=== PATIENT | female | born 1955 | race Caucasian/White ===

== ENCOUNTER → 2016-05-13 | Outpatient (CLI) | payer BC ==
--- NOTE | 2016-05-13 16:30 | P.HPBAR ---
Bariatric H&P - History & Physicial H&P Date: 05/13/16 History & Physicial: Visit/CC: Patient initial contact: Initial weight: Initial weight in pounds: Height: Initial BMI: Last weight: Current weight: Current weight in pounds: Current BMI: [place] body weight (based on NIH guidelines): Excess body weight loss: The patient is a 60 year-old F who presents for Bariatric Assessment. The patient presents today for lab band follow up. She has complaints of obstruction. She was still fill. Past Medical History Past Medical History: Hypertension, Neurologic Disorder Additional Past Medical History / Comment(s): neurological disorder of bilateral legs History of Any Multi-Drug Resistant Organisms: None Reported Past Surgical History: Appendectomy Additional Past Surgical History / Comment(s): benighn mass removed left upper thigh - Past Anesthesia/Blood Transfusion Reactions: No Reported Reaction Past Psychological History: Depression Smoking Status: Unknown if ever smoked Past Drug Use History: None Reported Surgical - Exam - General well developed, no distress - Eyes PERRL - ENT normal pinna - Neck no masses - Respiratory normal expansion - Cardiovascular Rhythm: regular - Abdomen Abdomen: soft, non tender Bariatric Assessment & Plan Plan: The patient LAP-BAND was adjusted. She had 1.5 mL added to her band. She'll follow-up in 4 weeks for recheck. Bariatric Checklist Checklist: Plan: Checklist: EGD: 1. Hiatal hernia: 2. H. Pylori: HgbA1c: Vitamin D: Smoking: Unknown if ever smoked Primary care physician referral: Psychiatry clearance: Cardiology clearance: Sleep study: Diet journal: VTE risk score: VTE risk level: Rehab needs at discharge:
[2016-05-13 17:02] VITALS: BP 101/59; PULSE 78; TEMP 97.8; BMI 26.9
== END | disposition home or self-care (01) ==
LOC: BARWHC3 12:51
PROVIDERS: ATTEND Surgery
DX: Z48.815 Encounter for surgical aftercare following surgery on the digestive system (principal); Z98.84 Bariatric surgery status
CPT/HCPCS: 99202

== ENCOUNTER → 2016-06-17 | Outpatient (CLI) | payer BC ==
[2016-06-17 13:20] VITALS: BP 107/62; PULSE 71; RESP 14; TEMP 98.4; BMI 26.9
--- NOTE | 2016-06-17 13:41 | P.HPBAR ---
Bariatric H&P - History & Physicial H&P Date: 06/17/16 History & Physicial: Visit/CC: band fill Patient initial contact: Initial weight: 95.254 kg Initial weight in pounds: 210.00 Height: 5 ft 7 in Initial BMI: 32.8 Last weight: Current weight: 77.882 kg Current weight in pounds: 171.70 Current BMI: 26.9 [place] body weight (based on NIH guidelines): 61.235 kg Excess body weight loss: 51.0% The patient is a 60 year-old F who presents for Bariatric Assessment. The patient had a computed tomography scan performed at her home [facility]. Patient' s found have a dilated esophagus on CAT scan. She states she feels no restriction. Past Medical History Past Medical History: Hypertension, Neurologic Disorder Additional Past Medical History / Comment(s): neurological disorder of bilateral legs History of Any Multi-Drug Resistant Organisms: None Reported Past Surgical History: Appendectomy Additional Past Surgical History / Comment(s): benighn mass removed left upper thigh - Past Anesthesia/Blood Transfusion Reactions: No Reported Reaction Past Psychological History: Depression Smoking Status: Never smoker Past Drug Use History: None Reported Surgical - Exam Vital Signs Temp Pulse Resp BP 98.4 F 71 14 107/62 06/17/16 13:16 06/17/16 13:16 06/17/16 13:16 06/17/16 13:16 - General well developed, no distress - Eyes PERRL - ENT normal pinna - Neck no masses - Respiratory normal expansion - Cardiovascular Rhythm: regular Abnormal Heart Sounds: systolic murmur - Abdomen Abdomen: soft, non tender Bariatric Assessment & Plan Plan: The patient's lap band was emptied area 1.4 mL remove her band. Patient will follow-up in one month and have a repeat esophagram performed. Bariatric Checklist Checklist: Plan: Checklist: EGD: 1. Hiatal hernia: 2. H. Pylori: HgbA1c: Vitamin D: Smoking: Never smoker Primary care physician referral: [place] Psychiatry clearance: Cardiology clearance: Sleep study: Diet journal: VTE risk score: VTE risk level: Rehab needs at discharge:
== END | disposition home or self-care (01) ==
LOC: BARWHC3 12:57
PROVIDERS: ATTEND Surgery
DX: Z48.815 Encounter for surgical aftercare following surgery on the digestive system (principal); R13.10 Dysphagia, unspecified; K22.8 Other specified diseases of esophagus; Z98.84 Bariatric surgery status; Z68.26 Body mass index [BMI] 26.0-26.9, adult
CPT/HCPCS: 99212

== ENCOUNTER → 2016-07-15 | Outpatient (CLI) | payer BC ==
--- NOTE | 2016-07-15 11:53 | FL ---
Limited esophagram history: Dysphasia 8 seconds fluoroscopy time Patient was given high density barium to drink Exam correlated to previous of 30 October 2009 FINDINGS: Attention directed to the lap band level. The lap band shows a normal orientation and is st able. There is no obstruction to flow. No extravasation. IMPRESSION: No evident complication status post lap band.
[2016-07-15 13:20] VITALS: BP 111/68; PULSE 66; RESP 14; TEMP 98; BMI 27.4
--- NOTE | 2016-07-15 16:58 | P.HPBAR ---
Bariatric H&P - History & Physicial H&P Date: 07/15/16 History & Physicial: Visit/CC: band fill Patient initial contact: Initial weight: 95.254 kg Initial weight in pounds: 210.00 Height: 5 ft 7 in Initial BMI: 32.8 Last weight: Current weight: 79.469 kg Current weight in pounds: 175.20 Current BMI: 27.4 [place] body weight (based on NIH guidelines): 61.235 kg Excess body weight loss: 46.3% The patient is a 60 year-old F who presents for Bariatric Assessment. Patient presents today for lab band follow. She currently feels hungry. He is requesting a fill of her LAP-BAND. Past Medical History Past Medical History: Hypertension, Neurologic Disorder Additional Past Medical History / Comment(s): neurological disorder of bilateral legs, Left broken clavicle x2, History of Any Multi-Drug Resistant Organisms: None Reported Past Surgical History: Appendectomy, Orthopedic Surgery Additional Past Surgical History / Comment(s): benighn mass removed left upper thigh 03-20, left clavicle repaired surgically on 06/25/16 Past Anesthesia/Blood Transfusion Reactions: No Reported Reaction Past Psychological History: Depression Smoking Status: Never smoker Past Drug Use History: None Reported Surgical - Exam Vital Signs Temp Pulse Resp BP 98.0 F 66 14 111/68 07/15/16 13:13 07/15/16 13:13 07/15/16 13:13 07/15/16 13:13 - General well developed, no distress - Eyes PERRL - ENT normal pinna - Neck no masses - Abdomen Abdomen: soft, non tender Bariatric Assessment & Plan Plan: The patient had 1 mL added to her LAP-BAND. She is ill drink water without difficulty. She'll follow-up in 4 weeks. Bariatric Checklist Checklist: Plan: Checklist: EGD: 1. Hiatal hernia: 2. H. Pylori: HgbA1c: Vitamin D: Smoking: Never smoker [facility] Psychiatry clearance: Cardiology clearance: Sleep study: Diet journal: VTE risk score: VTE risk level: Rehab needs at discharge:
== END | disposition home or self-care (01) ==
LOC: RADFLWHC 10:57
PROVIDERS: ATTEND Surgery
DX: Z48.815 Encounter for surgical aftercare following surgery on the digestive system (principal); R13.10 Dysphagia, unspecified; Z98.84 Bariatric surgery status; Z68.27 Body mass index [BMI] 27.0-27.9, adult
CPT/HCPCS: 74220; 99212

== ENCOUNTER → 2016-07-29 | Outpatient (CLI) | payer BC ==
[2016-07-29 15:17] VITALS: BP 138/83; PULSE 63; TEMP 98.3; BMI 27.5
--- NOTE | 2016-07-29 15:56 | P.HPBAR ---
Bariatric H&P - History & Physicial H&P Date: 07/29/16 History & Physicial: Visit/CC: Patient initial contact: Initial weight: 95.254 kg Initial weight in pounds: 210.00 Height: 5 ft 7 in Initial BMI: 32.8 Last weight: Current weight: 79.651 kg Current weight in pounds: 175.60 Current BMI: 27.5 [place] body weight (based on NIH guidelines): 61.235 kg Excess body weight loss: 45.8% The patient is a 60 year-old F who presents for Bariatric Assessment. The patient presents today for lab band follow. She currently feels hungry and is wishing to have a fill. Past Medical History Past Medical History: Hypertension, Neurologic Disorder Additional Past Medical History / Comment(s): neurological disorder of bilateral legs, Left broken clavicle x2, History of Any Multi-Drug Resistant Organisms: None Reported Past Surgical History: Appendectomy, Orthopedic Surgery Additional Past Surgical History / Comment(s): benighn mass removed left upper thigh 03-20, left clavicle repaired surgically on 06/25/16 Past Anesthesia/Blood Transfusion Reactions: No Reported Reaction Past Psychological History: Depression Smoking Status: Never smoker Past Drug Use History: None Reported Surgical - Exam Vital Signs Temp Pulse BP 98.3 F 63 138/83 07/29/16 15:15 07/29/16 15:15 07/29/16 15:15 - General well developed, no distress - Eyes PERRL - ENT normal pinna - Neck no masses - Respiratory normal expansion - Cardiovascular Rhythm: regular - Abdomen Abdomen: soft, non tender Bariatric Assessment & Plan Plan: The patient's lap band was adjusted. She had 0.5 mL added to her LAP-BAND. She currently is 1.5 mL in the band. She will follow-up in one month for recheck. Bariatric Checklist Checklist: Plan: Checklist: EGD: 1. Hiatal hernia: 2. H. Pylori: HgbA1c: Vitamin D: Smoking: Never smoker Primary care physician referral: alecia cabrera) Psychiatry clearance: Cardiology clearance: Sleep study: Diet journal: VTE risk score: VTE risk level: Rehab needs at discharge:
== END | disposition home or self-care (01) ==
LOC: BARWHC3 13:06
PROVIDERS: ATTEND Surgery
DX: Z48.815 Encounter for surgical aftercare following surgery on the digestive system (principal); Z98.84 Bariatric surgery status; Z68.27 Body mass index [BMI] 27.0-27.9, adult
CPT/HCPCS: 99212

== ENCOUNTER → 2016-08-26 | Outpatient (CLI) | payer BC ==
[2016-08-26 16:05] VITALS: BP 107/64; PULSE 72; RESP 15; TEMP 98.1; BMI 26.9
--- NOTE | 2016-08-26 16:51 | P.HPBAR ---
Bariatric H&P - History & Physicial H&P Date: 08/26/16 History & Physicial: Visit/CC: band fill Patient initial contact: Initial weight: 95.254 kg Initial weight in pounds: 210.00 Height: 5 ft 8 in Initial BMI: 31.9 Last weight: Current weight: 80.24 kg Current weight in pounds: 176.90 Current BMI: 26.9 [place] body weight (based on NIH guidelines): 63.503 kg Excess body weight loss: 47.2% The patient is a 60 year-old F who presents for Bariatric Assessment. Patient presents today for her LAP-BAND adjustment. She complains of hunger and wants to have more fluid placed in her band. She denies any GERD and dysphagia. Past Medical History Past Medical History: Hypertension, Neurologic Disorder Additional Past Medical History / Comment(s): neurological disorder of bilateral legs, Left broken clavicle x2, History of Any Multi-Drug Resistant Organisms: None Reported Past Surgical History: Appendectomy, Orthopedic Surgery Additional Past Surgical History / Comment(s): benighn mass removed left upper thigh 03-20, left clavicle repaired surgically on 06/25/16 Past Anesthesia/Blood Transfusion Reactions: No Reported Reaction Past Psychological History: Depression Smoking Status: Never smoker Past Drug Use History: None Reported Surgical - Exam Vital Signs Temp Pulse Resp BP 98.1 F 72 15 107/64 08/26/16 15:57 08/26/16 15:57 08/26/16 15:57 08/26/16 15:57 - General well developed, no distress - Eyes PERRL - ENT normal pinna - Neck no masses - Respiratory normal expansion - Cardiovascular Rhythm: regular - Abdomen Abdomen: soft, non tender Bariatric Assessment & Plan Plan: The patient's lap band was adjusted. She had 0.7 mL added to her LAP-BAND. She currently is 1.4 mL in the band. She will follow-up in one month for recheck. Bariatric Checklist Checklist: Plan: Checklist: EGD: 1. Hiatal hernia: 2. H. Pylori: HgbA1c: Vitamin D: Smoking: Never smoker Primary care physician referral: alecia [place]) Psychiatry clearance: Cardiology clearance: Sleep study: Diet journal: VTE risk score: VTE risk level: Rehab needs at discharge:
== END ==
LOC: BARWHC3 14:45
PROVIDERS: ATTEND Surgery
DX: Z48.815 Encounter for surgical aftercare following surgery on the digestive system (principal); Z98.84 Bariatric surgery status
CPT/HCPCS: 99202; 99212

== ENCOUNTER → 2016-09-23 | Outpatient (CLI) | payer BC ==
[2016-09-23 15:30] VITALS: BP 100/64; PULSE 65; RESP 15; TEMP 98.2; BMI 27.3
--- NOTE | 2016-09-23 16:29 | P.HPBAR ---
Bariatric H&P - History & Physicial H&P Date: 09/23/16 History & Physicial: Visit/CC: band fill Patient initial contact: Initial weight: 95.254 kg Initial weight in pounds: 210.00 Height: 5 ft 8 in Initial BMI: 31.9 Last weight: Current weight: 81.647 kg Current weight in pounds: 180.00 Current BMI: 27.3 [place] body weight (based on NIH guidelines): 63.503 kg Excess body weight loss: 42.8% The patient is a 61 year-old F who presents for Bariatric Assessment. [place]clerae and is requesting a fill of her LAP-BAND. Past Medical History Past Medical History: Hypertension, Neurologic Disorder Additional Past Medical History / Comment(s): neurological disorder of bilateral legs, Left broken clavicle x2, History of Any Multi-Drug Resistant Organisms: None Reported Past Surgical History: Appendectomy, Orthopedic Surgery Additional Past Surgical History / Comment(s): benighn mass removed left upper thigh -, left clavicle repaired surgically on 06/25/16 Past Anesthesia/Blood Transfusion Reactions: No Reported Reaction Past Psychological History: Depression Smoking Status: Never smoker Past Drug Use History: None Reported Surgical - Exam Vital Signs Temp Pulse Resp BP 98.2 F 65 15 100/64 09/23/16 15:26 09/23/16 15:26 09/23/16 15:26 09/23/16 15:26 - General well developed, no distress - Eyes PERRL - ENT normal pinna - Neck no masses - Respiratory normal expansion - Cardiovascular Rhythm: regular - Abdomen Abdomen: soft, non tender Bariatric Assessment & Plan Plan: his LAP-BAND was adjusted. She had 1 mL added to her band. She will follow-up in one month. Bariatric Checklist Checklist: Plan: Checklist: EGD: 1. Hiatal hernia: 2. H. Pylori: HgbA1c: Vitamin D: Smoking: Never smoker Primary care physician referral: alecia [place]) Psychiatry clearance: Cardiology clearance: Sleep study: Diet journal: VTE risk score: VTE risk level: Rehab needs at discharge:
== END | disposition home or self-care (01) ==
LOC: BARWHC3 14:51
PROVIDERS: ATTEND Surgery
DX: Z09 Encounter for follow-up examination after completed treatment for conditions other than malignant neoplasm (principal); I10 Essential (primary) hypertension; F32.9 Major depressive disorder, single episode, unspecified; Z98.84 Bariatric surgery status
CPT/HCPCS: 99212

== ENCOUNTER → 2016-10-14 | Outpatient (CLI) | payer BC ==
[2016-10-14 14:23] VITALS: BP 113/73; PULSE 72; RESP 14; TEMP 98.2; BMI 26.4
--- NOTE | 2016-10-14 15:22 | P.HPBAR ---
Bariatric H&P - History & Physicial H&P Date: 10/14/16 History & Physicial: Visit/CC: band fill Patient initial contact: Initial weight: 95.254 kg Initial weight in pounds: 210.00 Height: 5 ft 8 in Initial BMI: 31.9 Last weight: Current weight: 78.88 kg Current weight in pounds: 173.90 Current BMI: 26.4 [place] body weight (based on NIH guidelines): 63.503 kg Excess body weight loss: 51.5% The patient is a 61 year-old F who presents for Bariatric Assessment. She is requesting a fill of her LAP-BAND. She currently feels hunger. Past Medical History Past Medical History: Hypertension, Neurologic Disorder Additional Past Medical History / Comment(s): neurological disorder of bilateral legs, Left broken clavicle x2, Right broken patella 09/13/16; History of Any Multi-Drug Resistant Organisms: None Reported Past Surgical History: Appendectomy, Orthopedic Surgery Additional Past Surgical History / Comment(s): benighn mass removed left upper thigh 03-20, left clavicle repaired surgically on 06/25/16 Past Anesthesia/Blood Transfusion Reactions: No Reported Reaction Past Psychological History: Depression Smoking Status: Never smoker Past Drug Use History: None Reported Surgical - Exam Vital Signs Temp Pulse Resp BP 98.2 F 72 14 113/73 10/14/16 14:21 10/14/16 14:21 10/14/16 14:21 10/14/16 14:21 - General well developed - Eyes PERRL - Respiratory normal expansion - Cardiovascular Rhythm: regular - Abdomen Abdomen: soft, non tender Bariatric Assessment & Plan Plan: The patient LAP-BAND was adjusted. She has 1.2 mL in the band. She is postoperative 2.4 mL in the band. I explained to patient that she must have a leak in the system. The band was adjusted she had a total of 2.5 mL placed in her LAP-BAND. She'll follow-up in one month for recheck if her band has decreased volume patient most likely has a leak at her port. This will need to be changed. She'll follow-up one month. Bariatric Checklist Checklist: Plan: Checklist: EGD: 1. Hiatal hernia: 2. H. Pylori: HgbA1c: Vitamin D: Smoking: Never smoker Primary care physician referral: [place]) Psychiatry clearance: Cardiology clearance: Sleep study: Diet journal: VTE risk score: VTE risk level: Rehab needs at discharge:
== END ==
LOC: BARWHC3 13:37
PROVIDERS: ATTEND Surgery
DX: Z48.815 Encounter for surgical aftercare following surgery on the digestive system (principal); Z98.84 Bariatric surgery status
CPT/HCPCS: 99212

== ENCOUNTER → 2016-10-28 | Outpatient (CLI) | payer BC ==
[2016-10-28 19:41] VITALS: BP 119/67; PULSE 77; RESP 16; TEMP 98; BMI 26.0
--- NOTE | 2016-11-11 17:05 | P.HPBAR ---
Bariatric H&P - History & Physicial H&P Date: 10/28/16 History & Physicial: Visit/CC: band fill (suspect a leak) Patient initial contact: Initial weight: 95.254 kg Initial weight in pounds: 210.00 Height: 5 ft 8 in Initial BMI: 31.9 Last weight: Current weight: 77.746 kg Current weight in pounds: 171.40 Current BMI: 26.0 [place] body weight (based on NIH guidelines): 63.503 kg Excess body weight loss: 55.1% The patient is a 61 year-old F who presents for Bariatric Assessment. Patient is requesting a fill of her LAP-BAND. He feels hungry. Past Medical History Past Medical History: Hypertension, Neurologic Disorder Additional Past Medical History / Comment(s): neurological disorder of bilateral legs, Left broken clavicle x2, Right broken patella 09/13/16; History of Any Multi-Drug Resistant Organisms: None Reported Past Surgical History: Appendectomy, Orthopedic Surgery Additional Past Surgical History / Comment(s): benighn mass removed left upper thigh 03-20, left clavicle repaired surgically on 06/25/16 Past Anesthesia/Blood Transfusion Reactions: No Reported Reaction Past Psychological History: Depression Smoking Status: Never smoker Surgical - Exam Vital Signs Temp Pulse Resp BP 98 F 77 16 119/67 10/28/16 19:36 10/28/16 19:36 10/28/16 19:36 10/28/16 19:36 - General well developed, no distress - Abdomen Abdomen: soft, non tender Bariatric Assessment & Plan Plan: The patient LAP-BAND was adjusted. She had 1 mL added to the band. The fluid immediately started to leak from the port. There appeared to be a reservoir leak. I discussed with patient that she has a malfunctioning LAP-BAND port. She will need to be scheduled for replacement of her LAP-BAND port. Bariatric Checklist Checklist: Plan: Checklist: EGD: 1. Hiatal hernia: 2. H. Pylori: HgbA1c: Vitamin D: Smoking: Never smoker Primary care physician referral: alecia cabrera) Psychiatry clearance: Cardiology clearance: Sleep study: Diet journal: VTE risk score: VTE risk level: Rehab needs at discharge:
== END | disposition home or self-care (01) ==
LOC: BARWHC3 13:29
PROVIDERS: ATTEND Surgery
DX: Z48.815 Encounter for surgical aftercare following surgery on the digestive system (principal); I10 Essential (primary) hypertension; F32.9 Major depressive disorder, single episode, unspecified
CPT/HCPCS: 99212

== ENCOUNTER 2016-12-13 08:39 | Day surgery (SDC) | payer BC ==
[2016-12-10 13:24] VITALS: BMI 26.6
[~2016-12-13 08:39] MED LIST: DEXAMETHASONE SOD PHOSPHATE 10 MG/ML 1 ML VIAL IV ONE; HYDROmorphone 1 MG/ML 1 ML SYRINGE IVP PRN; LACTATED RINGERS 1,000 ML IV SCH; MIDAZOLAM 2 MG/2 ML VIAL IV PRN; SCOPOLAMINE 1.5MG/72HR PATCH TRANSDERM ONE; ceFAZolin 2 GM in SODIUM CHLORIDE 0.9% 100 ML IVPB ONE
[2016-12-13 10:01] VITALS: RESP 16
[2016-12-13] MEDS ORDERED: LIDOCAINE 1% 20 ML VIAL (10MG/ML) FOR IV START INTRADERMA ONE (10:08)
[2016-12-13] MEDS: ONDANSETRON 4 MG/2 ML VIAL IVP ONE ×2 (10:08→13:16)
[2016-12-13 10:14] LABS: CH 30.1; HCT 42.1 % (34.0-46.0); HDW 2.67; HGB 13.5 gm/dL (11.4-16.0); MCH 29.4 pg (25.0-35.0); MCHC 32.1 g/dL (31.0-37.0); MCV 91.7 fL (80.0-100.0); Mean Platelet Volume 8.1; RBC 4.59 m/uL (3.80-5.40); RDW 14.5 % (11.5-15.5); WBC 3.6 k/uL (3.8-10.6)
[2016-12-13 10:26] LABS: ALT 36 U/L (9-52); AST 29 U/L (14-36); Alkaline Phosphatase 55 U/L (38-126); Anion Gap 6 mmol/L; Blood Urea Nitrogen 16 mg/dL (7-17); Calcium 9.7 mg/dL (8.4-10.2); Carbon Dioxide 29 mmol/L (22-30); Chloride 106 mmol/L (98-107); Glucose 68 mg/dL (74-99); Non-African American GFR(MDRD) >60 (>60 ml/min/1.73 sqM); Sodium 141 mmol/L (137-145); Total Bilirubin 0.6 mg/dL (0.2-1.3); Total Protein 6.4 g/dL (6.3-8.2)
--- NOTE | 2016-12-13 10:45 | P.GSHP ---
History of Present Illness H&P Date: 12/13/16 Chief Complaint: LAP-BAND port malfunction This is a 61-year-old female who presents today for laparoscopic removal and replacement of LAP-BAND port. Her LAP-BAND port malfunction. Past Medical History Past Medical History: Hypertension, Neurologic Disorder Additional Past Medical History / Comment(s): HX PVCs,spastic paraplegia bilateral legs-freq falls,chronic pain mid buttock down jadiel legs, Left broken clavicle x2,lt knee fx, rt broken patella 09/13/16; History of Any Multi-Drug Resistant Organisms: None Reported Past Surgical History: Appendectomy, Breast Surgery, Orthopedic Surgery Additional Past Surgical History / Comment(s): benign mass removed left upper thigh 03-20, left clavicle repaired surgically on 06/25/16,3 lumps removed lt breast Past Anesthesia/Blood Transfusion Reactions: No Reported Reaction Additional Past Anesthesia/Blood Transfusion Reaction / Comment(s): no hx blood transfusion Smoking Status: Former smoker - Past Family History Mother Family Medical History: No Reported History Father Family Medical History: Cancer, Diabetes Mellitus Additional Family Medical History / Comment(s): skin,MS Medications and Allergies Home Medications Medication Instructions Recorded Confirmed Type ALPRAZolam [Xanax] 0.5 mg PO BID PRN 05/14/16 12/13/16 History Calcium Carbonate/Vitamin D3 1 tab PO DAILY 05/14/16 12/13/16 History [Caltrate 600 Plus D3 Tablet] Cholecalciferol [Vitamin D3] 1,000 units PO DAILY 05/14/16 12/13/16 History DULoxetine HCL [Cymbalta] 90 mg PO QAM 05/14/16 12/13/16 History Denosumab [Prolia] 1 injection SQ DIRECTED 05/14/16 12/13/16 History Magnesium 250 mg PO DAILY 05/14/16 12/13/16 History Multivitamins, Thera [Multivitamin] 1 tab PO DAILY 05/14/16 12/13/16 History Potassium Gluconate 1 tab PO DAILY 05/14/16 12/13/16 History traMADol HCL [Ultram] 100 mg PO TID 05/14/16 12/13/16 History traZODone HCL [Desyrel] 100 mg PO HS PRN 07/15/16 12/13/16 History Metoprolol Succinate (ER) [Toprol 50 mg PO QAM 12/10/16 12/13/16 History Xl] Allergies Allergy/AdvReac Type Severity Reaction Status Date / Time cephalexin [From Keflex] AdvReac Itching,yeast Verified 12/10/16 13:09 infection Surgical - Exam Vital Signs Temp Pulse Resp BP Pulse Ox 96.4 F L 66 16 117/79 100 12/13/16 09:57 12/13/16 09:57 12/13/16 09:57 12/13/16 09:57 12/13/16 09:57 - General well developed, no distress - Eyes PERRL - ENT normal pinna - Neck no masses - Respiratory normal expansion - Cardiovascular Rhythm: regular - Abdomen Abdomen: soft, non tender Results - Labs 12/13/16 10:00 12/13/16 10:00 Abnormal Lab Results - Last 24 Hours (Table) 12/13/16 12/13/16 Range/Units 10:00 10:00 WBC 3.6 L (3.8-10.6) k/uL Glucose 68 L (74-99) mg/dL Diabetes panel 12/13/16 Range/Units 10:00 Sodium 141 (137-145) mmol/L Potassium 4.0 (3.5-5.1) mmol/L Chloride 106 (98-107) mmol/L Carbon Dioxide 29 (22-30) mmol/L BUN 16 (7-17) mg/dL Creatinine 0.80 (0.52-1.04) mg/dL Glucose 68 L (74-99) mg/dL Calcium 9.7 (8.4-10.2) mg/dL AST 29 (14-36) U/L ALT 36 (9-52) U/L Alkaline Phosphatase 55 (38-126) U/L Total Protein 6.4 (6.3-8.2) g/dL Albumin 3.9 (3.5-5.0) g/dL Calcium panel 12/13/16 Range/Units 10:00 Calcium 9.7 (8.4-10.2) mg/dL Albumin 3.9 (3.5-5.0) g/dL Pituitary panel 12/13/16 Range/Units 10:00 Sodium 141 (137-145) mmol/L Potassium 4.0 (3.5-5.1) mmol/L Chloride 106 (98-107) mmol/L Carbon Dioxide 29 (22-30) mmol/L BUN 16 (7-17) mg/dL Creatinine 0.80 (0.52-1.04) mg/dL Glucose 68 L (74-99) mg/dL Calcium 9.7 (8.4-10.2) mg/dL Adrenal panel 12/13/16 Range/Units 10:00 Sodium 141 (137-145) mmol/L Potassium 4.0 (3.5-5.1) mmol/L Chloride 106 (98-107) mmol/L Carbon Dioxide 29 (22-30) mmol/L BUN 16 (7-17) mg/dL Creatinine 0.80 (0.52-1.04) mg/dL Glucose 68 L (74-99) mg/dL Calcium 9.7 (8.4-10.2) mg/dL Total Bilirubin 0.6 (0.2-1.3) mg/dL AST 29 (14-36) U/L ALT 36 (9-52) U/L Alkaline Phosphatase 55 (38-126) U/L Total Protein 6.4 (6.3-8.2) g/dL Albumin 3.9 (3.5-5.0) g/dL Assessment and Plan Plan: LAP-BAND port malfunction. We'll perform laparoscopic removal and replacement of LAP-BAND port.
[2016-12-13] MEDS ORDERED: ROCURONIUM BROMIDE 10 MG/ML 10 ML VIAL IV ONE (11:12)
[2016-12-13] MEDS ORDERED: GLYCOPYRROLATE 0.2 MG/ML 2 ML VIAL ONE (11:12)
[2016-12-13] MEDS ORDERED: fentaNYL (PF) 50 MCG/ML 2 ML AMP ONE (11:12)
[2016-12-13] MEDS ORDERED: HYDROmorphone (PF) 1 MG/ML ONE (11:12)
[2016-12-13] MEDS ORDERED: NEOSTIGMINE 1 MG/ML 10 ML VIAL ONE (11:12)
[2016-12-13] MEDS ORDERED: MIDAZOLAM 2 MG/2 ML VIAL ONE (11:12)
[2016-12-13] MEDS ORDERED: PROPOFOL 10 MG/ML 20 ML VIAL IV ONE (11:12)
[2016-12-13] MEDS ORDERED: BUPIVACAINE (PF) 0.25% 30 ML VIAL SQ ONE (11:34)
[2016-12-13] MEDS ORDERED: LIDOCAINE 1%-EPI 1:100,000 20 ML VIAL SQ ONE (11:35)
--- NOTE | 2016-12-13 11:56 | P.OP ---
Date of Procedure: 12/13/16 Preoperative Diagnosis: LAP-BAND port malfunction Postoperative Diagnosis: LAP-BAND port malfunction Procedure(s) Performed: Laparoscopic removal and replacement of LAP-BAND port Implants: Anesthesia: FELICEA Surgeon: Jerry Reyes Estimated Blood Loss (ml): 5 Pathology: none sent Condition: stable Disposition: PACU Indications for Procedure: Operative Findings: Description of Procedure: Patient's placed on the operating table in the supine position. She received general anesthesia. Her abdomen was prepped and draped usual sterile fashion. The skin was incised over the LAP-BAND port and then using blunt and sharp dissection with cautery the LAP-BAND port was dissected free from the subcutaneous tissues. There appeared to be erosion of the PEG tube the LAP- BAND port. The PEG tube was then cut and the LAP-BAND port was sent to pathology. The perineal cavity was then entered using a 5 mm blade less trocar under direct visitation. The abdomen insufflated. After adequate insufflation a 10 mm trochars placed in the right epigastric position. Another 5 mm trochars placed in the left midabdomen position. The LAP-BAND port tubing was visualized. The tubing was then brought up through the 10 mm trocar site. The trochars withdrawn. A new LAP-BAND port was secured to the PEG tube and then secured to the fascia using 0 Nurolon suture. The port was flushed with normal saline. 2 mL of normal saline placed into the LAP-BAND port. The skin was closed interrupted 3-0 Monocryl suture. Dermabond was applied. Patient was sent to recovery in stable condition.
[2016-12-13 12:14] VITALS: TEMP 97
[2016-12-13] MEDS ORDERED: LACTATED RINGERS 1,000 ML IV ONE (12:39)
[2016-12-13] MEDS: METOCLOPRAMIDE 5 MG/ML 2 ML VIAL IVP STA ×2 (14:07→14:10)
[2016-12-13 14:34] VITALS: BP 119/73; PULSE 59
== END 2016-12-13 14:51 | disposition home or self-care (01) ==
LOC: OR 08:39
PROVIDERS: ATTEND Surgery
DX: T85.518A Breakdown (mechanical) of other gastrointestinal prosthetic devices, implants and grafts, initial encounter (principal); I11.0 Hypertensive heart disease with heart failure; I50.9 Heart failure, unspecified; J44.9 Chronic obstructive pulmonary disease, unspecified; Z87.891 Personal history of nicotine dependence; E04.9 Nontoxic goiter, unspecified; K21.9 Gastro-esophageal reflux disease without esophagitis; Z79.891 Long term (current) use of opiate analgesic; Z79.899 Other long term (current) drug therapy; Z88.1 Allergy status to other antibiotic agents
CPT/HCPCS: 43888; 80053; 85027; C1751; J2250; J1100; J2710; J2765; J0690; J2405; J3010; J1170; J2704

== ENCOUNTER → 2016-12-30 | Outpatient (CLI) | payer BC ==
[2016-12-30 14:07] VITALS: BP 128/73; PULSE 69; TEMP 98.3; BMI 25.1
--- NOTE | 2016-12-30 14:21 | P.HPBAR ---
Bariatric H&P - History & Physicial H&P Date: 12/30/16 History & Physicial: Visit/CC: post op follow up Patient initial contact: Initial weight: 95.254 kg Initial weight in pounds: 210.00 Height: 5 ft 8 in Initial BMI: 31.9 Last weight: Current weight: 75.024 kg Current weight in pounds: 165.40 Current BMI: 25.1 [place] body weight (based on NIH guidelines): 63.503 kg Excess body weight loss: 63.7% The patient is a 61 year-old F who presents for Bariatric Assessment. The patient presents today for lab band follow up. She has lost 6 pounds since her last visit. Her LAP-BAND port was replaced several weeks ago. She feels that she is in the green zone. Past Medical History Past Medical History: Hypertension, Neurologic Disorder Additional Past Medical History / Comment(s): HX PVCs,spastic paraplegia bilateral legs-freq falls,chronic pain mid buttock down jadiel legs, Left broken clavicle x2,lt knee fx, rt broken patella 09/13/16; History of Any Multi-Drug Resistant Organisms: None Reported Past Surgical History: Appendectomy, Breast Surgery, Orthopedic Surgery Additional Past Surgical History / Comment(s): benign mass removed left upper thigh 11-16, left clavicle repaired surgically on 06/25/16,3 lumps removed lt breast Past Anesthesia/Blood Transfusion Reactions: No Reported Reaction Additional Past Anesthesia/Blood Transfusion Reaction / Comm: no hx blood transfusion Smoking Status: Former smoker - Past Family History Mother Family Medical History: No Reported History Father Family Medical History: Cancer, Diabetes Mellitus Additional Family Medical History / Comment(s): skin,MS Surgical - Exam Vital Signs Temp Pulse BP 98.3 F 69 128/73 12/30/16 14:04 12/30/16 14:04 12/30/16 14:04 - General well developed, no distress - Eyes PERRL - Abdomen Abdomen: soft, non tender Bariatric Assessment & Plan Plan: The patient is doing well. She has had good weight loss since her last visit. She will follow-up in 4 weeks. Bariatric Checklist Checklist: Plan: Checklist: EGD: 1. Hiatal hernia: 2. H. Pylori: HgbA1c: Vitamin D: Smoking: Former smoker Primary care physician referral: alecia [place]) Psychiatry clearance: Cardiology clearance: Sleep study: Diet journal: VTE risk score: VTE risk level: Rehab needs at discharge:
== END | disposition home or self-care (01) ==
LOC: BARWHC3 13:27
PROVIDERS: ATTEND Surgery
DX: Z09 Encounter for follow-up examination after completed treatment for conditions other than malignant neoplasm (principal); I10 Essential (primary) hypertension; Z87.891 Personal history of nicotine dependence
CPT/HCPCS: 99211

== ENCOUNTER → 2017-06-30 | Outpatient (CLI) | payer BC ==
[2017-06-30 15:26] VITALS: BP 104/58; PULSE 75; RESP 15; TEMP 97.9; BMI 23.6
--- NOTE | 2017-07-01 11:21 | P.HPBAR ---
Bariatric H&P - History & Physicial H&P Date: 06/30/17 History & Physicial: Visit/CC: band fill Patient initial contact: Initial weight: 95.254 kg Initial weight in pounds: 210.00 Height: 5 ft 8 in Initial BMI: 31.9 Last weight: Current weight: 70.534 kg Current weight in pounds: 155.50 Current BMI: 23.6 [place] body weight (based on NIH guidelines): 63.503 kg Excess body weight loss: 77.8% The patient is a 61 year-old F who presents for Bariatric Assessment. Patient presents today for her LAP-BAND adjusted. She wishes to have a fill performed. She currently is hungry Past Medical History Past Medical History: Hypertension, Neurologic Disorder Additional Past Medical History / Comment(s): HX PVCs,spastic paraplegia bilateral legs-freq falls,chronic pain mid buttock down jadiel legs, Left broken clavicle x2,lt knee fx, rt broken patella 09/13/16; History of Any Multi-Drug Resistant Organisms: None Reported Past Surgical History: Appendectomy, Breast Surgery, Orthopedic Surgery Additional Past Surgical History / Comment(s): benign mass removed left upper thigh 03-20, left clavicle repaired surgically on 06/25/16,3 lumps removed lt breast Past Anesthesia/Blood Transfusion Reactions: No Reported Reaction Additional Past Anesthesia/Blood Transfusion Reaction / Comm: no hx blood transfusion Past Psychological History: Depression Smoking Status: Former smoker Past Alcohol Use History: None Reported Additional Past Alcohol Use History / Comment(s): quit smoking 1997,smoked approx 20yrs <1ppd Past Drug Use History: None Reported - Past Family History Mother Family Medical History: No Reported History Father Family Medical History: Cancer, Diabetes Mellitus Additional Family Medical History / Comment(s): skin,MS Surgical - Exam Vital Signs Temp Pulse Resp BP 97.9 F 75 15 104/58 06/30/17 15:16 06/30/17 15:16 06/30/17 15:16 06/30/17 15:16 - General well developed, no distress - Eyes PERRL - ENT normal pinna - Neck no masses - Respiratory normal expansion - Cardiovascular Rhythm: regular - Abdomen Abdomen: soft, non tender Bariatric Assessment & Plan Plan: Patient LAP-BAND was adjusted. 0.3 mL was added to her band. She currently is 2.8 mL in the band. She was opened require without difficulty. She'll follow- up in one month. Bariatric Checklist Checklist: Plan: Checklist: EGD: 1. Hiatal hernia: 2. H. Pylori: HgbA1c: Vitamin D: Smoking: Former smoker Primary care physician referral: alecia auguste ([place]) Psychiatry clearance: Cardiology clearance: Sleep study: Diet journal: VTE risk score: VTE risk level: Rehab needs at discharge:
== END | disposition home or self-care (01) ==
LOC: BARWHC3 14:19
PROVIDERS: ATTEND Surgery
DX: Z46.51 Encounter for fitting and adjustment of gastric lap band (principal); T73.0XXA Starvation, initial encounter; I10 Essential (primary) hypertension; F32.9 Major depressive disorder, single episode, unspecified; F41.9 Anxiety disorder, unspecified; R29.90 Unspecified symptoms and signs involving the nervous system; Z87.891 Personal history of nicotine dependence; Z98.890 Other specified postprocedural states; Z98.84 Bariatric surgery status
CPT/HCPCS: 99212

== ENCOUNTER → 2017-09-26 | Outpatient (CLI) | payer BC ==
[2017-09-26 11:13] VITALS: BP 115/76; PULSE 87; TEMP 98.1; BMI 22.0
--- NOTE | 2017-09-26 13:36 | P.HPBAR ---
Bariatric H&P - History & Physicial H&P Date: 09/26/17 History & Physicial: Visit/CC: lap band follow up Patient initial contact: Initial weight: 95.254 kg Initial weight in pounds: 210.00 Height: 5 ft 8 in Initial BMI: 31.9 Last weight: Current weight: 65.771 kg Current weight in pounds: 145.00 Current BMI: 22.0 [place] body weight (based on NIH guidelines): 63.503 kg Excess body weight loss: 92.8% The patient is a 62 year-old F who presents for Bariatric Assessment. The patient's complaint of dysphagia. She wishes to have her band fluid removed. Past Medical History Past Medical History: Hypertension, Neurologic Disorder Additional Past Medical History / Comment(s): HX PVCs,spastic paraplegia bilateral legs-freq falls,chronic pain mid buttock down jadiel legs, Left broken clavicle x2,lt knee fx, rt broken patella 09/13/16; History of Any Multi-Drug Resistant Organisms: None Reported Past Surgical History: Appendectomy, Breast Surgery, Orthopedic Surgery Additional Past Surgical History / Comment(s): benign mass removed left upper thigh 03-20, left clavicle repaired surgically on 06/25/16,3 lumps removed lt breast Past Anesthesia/Blood Transfusion Reactions: No Reported Reaction Additional Past Anesthesia/Blood Transfusion Reaction / Comm: no hx blood transfusion Past Psychological History: Depression Smoking Status: Former smoker Past Alcohol Use History: None Reported Additional Past Alcohol Use History / Comment(s): quit smoking 1997,smoked approx 20yrs <1ppd Past Drug Use History: None Reported - Past Family History Mother Family Medical History: No Reported History Father Family Medical History: Cancer, Diabetes Mellitus Additional Family Medical History / Comment(s): skin,MS Surgical - Exam Vital Signs Temp Pulse BP 98.1 F 87 115/76 09/26/17 11:08 09/26/17 11:08 09/26/17 11:08 - General well developed, no distress - Eyes PERRL - ENT normal pinna - Neck no masses - Respiratory normal expansion - Cardiovascular Rhythm: regular - Abdomen Abdomen: soft, non tender Bariatric Assessment & Plan Plan: The patient's lap band was adjusted. 1 mL was removed from her band. She was able to water without difficulty. She'll follow-up in 4 weeks. Bariatric Checklist Checklist: Plan: Checklist: EGD: 1. Hiatal hernia: 2. H. Pylori: HgbA1c: Vitamin D: Smoking: Former smoker Primary care physician referral: alecia [place]) Psychiatry clearance: Cardiology clearance: Sleep study: Diet journal: VTE risk score: VTE risk level: Rehab needs at discharge:
== END | disposition home or self-care (01) ==
LOC: BARWHC3 09:51
PROVIDERS: ATTEND Surgery
DX: Z48.815 Encounter for surgical aftercare following surgery on the digestive system (principal); Z87.891 Personal history of nicotine dependence; Z98.84 Bariatric surgery status
CPT/HCPCS: 99212

== ENCOUNTER → 2017-10-06 | Outpatient (CLI) | payer BC ==
[2017-10-06 15:10] VITALS: BP 108/60; PULSE 67; TEMP 98; BMI 22.8
--- NOTE | 2017-10-06 16:34 | P.HPBAR ---
Bariatric H&P - History & Physicial H&P Date: 10/06/17 History & Physicial: Visit/CC: lap band follow up Patient initial contact: Initial weight: 95.254 kg Initial weight in pounds: 210.00 Height: 5 ft 8 in Initial BMI: 31.9 Last weight: Current weight: 68.22 kg Current weight in pounds: 150.40 Current BMI: 22.8 [place] body weight (based on NIH guidelines): 63.503 kg Excess body weight loss: 85.1% The patient is a 62 year-old F who presents for Bariatric Assessment. Patient presents today for lab band follow. She is requesting a fill of her LAP-BAND. She currently feels hungry. Past Medical History Past Medical History: Hypertension, Neurologic Disorder Additional Past Medical History / Comment(s): HX PVCs,spastic paraplegia bilateral legs-freq falls,chronic pain mid buttock down jadiel legs, Left broken clavicle x2,lt knee fx, rt broken patella 09/13/16; History of Any Multi-Drug Resistant Organisms: None Reported Past Surgical History: Appendectomy, Breast Surgery, Orthopedic Surgery Additional Past Surgical History / Comment(s): benign mass removed left upper thigh 03-20, left clavicle repaired surgically on 06/25/16,3 lumps removed lt breast Past Anesthesia/Blood Transfusion Reactions: No Reported Reaction Additional Past Anesthesia/Blood Transfusion Reaction / Comm: no hx blood transfusion Past Psychological History: Depression Smoking Status: Former smoker Past Alcohol Use History: None Reported Additional Past Alcohol Use History / Comment(s): quit smoking 1997,smoked approx 20yrs <1ppd Past Drug Use History: None Reported - Past Family History Mother Family Medical History: No Reported History Father Family Medical History: Cancer, Diabetes Mellitus Additional Family Medical History / Comment(s): skin,MS Surgical - Exam Vital Signs Temp Pulse BP 98 F 67 108/60 10/06/17 15:05 10/06/17 15:05 10/06/17 15:05 - General well developed, no distress - Eyes PERRL - Abdomen Abdomen: soft, non tender Bariatric Assessment & Plan Plan: Patient's lap band was adjusted. 1 mL was added to her band. She was able to water without difficulty. She'll follow-up in one month. Bariatric Checklist Checklist: Plan: Checklist: EGD: 1. Hiatal hernia: 2. H. Pylori: HgbA1c: Vitamin D: Smoking: Former smoker Primary care physician referral: alecia [place]) Psychiatry clearance: Cardiology clearance: Sleep study: Diet journal: VTE risk score: VTE risk level: Rehab needs at discharge:
== END ==
LOC: BARWHC3 14:01
PROVIDERS: ATTEND Surgery
DX: Z48.815 Encounter for surgical aftercare following surgery on the digestive system (principal); Z87.891 Personal history of nicotine dependence; Z98.84 Bariatric surgery status
CPT/HCPCS: 99212

== ENCOUNTER → 2022-08-12 | Outpatient (CLI) | payer BC, MEDICARE ==
[2022-08-12 13:40] VITALS: BP 112/78; PULSE 86; TEMP 97.9; BMI 24.5
--- NOTE | 2022-08-12 13:46 | P.HPBAR ---
Bariatric H&P - History & Physicial H&P Date: 08/12/22 History & Physicial: Visit/CC: lap band follow up Patient initial contact: Initial weight: 95.254 kg Initial weight in pounds: 210.00 Height: 5 ft 8 in Initial BMI: 31.9 Last weight: Current weight: 73.028 kg Current weight in pounds: 161.00 Current BMI: 24.5 [place] body weight (based on NIH guidelines): 63.503 kg Excess body weight loss: 69.9% The patient is a 66 year-old F who presents for Bariatric Assessment.patient resents today for LAP-BAND follow-up. She's not been seen for 5 years. she is gainingshe has gained about 12 pounds. Past Medical History Past Medical History: Hypertension, Neurologic Disorder Additional Past Medical History / Comment(s): HX PVCs,spastic paraplegia bilateral legs-freq falls,chronic pain mid buttock down jadiel legs, Left broken clavicle x2,lt knee fx, rt broken patella 09/13/16; History of Any Multi-Drug Resistant Organisms: None Reported Past Surgical History: Appendectomy, Breast Surgery, Orthopedic Surgery Additional Past Surgical History / Comment(s): benign mass removed left upper thigh -, left clavicle repaired surgically on 06/25/16,3 lumps removed lt breast Past Anesthesia/Blood Transfusion Reactions: No Reported Reaction Additional Past Anesthesia/Blood Transfusion Reaction / Comm: no hx blood transfusion Smoking Status: Never smoker - Past Family History Mother Family Medical History: No Reported History Father Family Medical History: Cancer, Diabetes Mellitus Additional Family Medical History / Comment(s): skin,MS Surgical - Exam Vital Signs Temp Pulse BP 97.9 F 86 112/78 08/12/22 13:38 08/12/22 13:38 08/12/22 13:38 - General well developed, well nourished, no distress - Eyes PERRL - ENT normal pinna - Neck no masses - Respiratory normal expansion - Cardiovascular Rhythm: regular - Abdomen Abdomen: soft, non tender, surgical scars Bariatric Assessment & Plan Plan: patient's LAP-BAND was adjusted. She had 0.3 mL added to the band. She currently is 1.9 mL in the band. She'll follow-up in 6 weeks. Bariatric Checklist Checklist: Plan: Checklist: EGD: 1. Hiatal hernia: 2. H. Pylori: HgbA1c: Vitamin D: Smoking: Former smoker Primary care physician referral: alecia [place]) Psychiatry clearance: Cardiology clearance: Sleep study: Diet journal: VTE risk score: VTE risk level: Rehab needs at discharge:
== END ==
LOC: BARWHC3 12:48
PROVIDERS: ATTEND Surgery
DX: E66.01 Morbid (severe) obesity due to excess calories (principal); Z46.51 Encounter for fitting and adjustment of gastric lap band; I10 Essential (primary) hypertension; Z88.1 Allergy status to other antibiotic agents; Z87.891 Personal history of nicotine dependence
CPT/HCPCS: 99212

== ENCOUNTER → 2022-08-26 | Outpatient (CLI) | payer MEDICARE ==
[2022-08-26 13:33] VITALS: BP 102/56; PULSE 79; TEMP 98.1; BMI 24.3
--- NOTE | 2022-10-08 10:08 | P.HPBAR ---
Bariatric H&P - History & Physicial H&P Date: 08/26/22 History & Physicial: Visit/CC: lap band Patient initial contact: Initial weight: 95.254 kg Initial weight in pounds: 210.00 Height: 5 ft 8 in Initial BMI: 31.9 Last weight: Current weight: 72.575 kg Current weight in pounds: 160.00 Current BMI: 24.3 [place] body weight (based on NIH guidelines): 63.503 kg Excess body weight loss: 71.4% The patient is a 67 year-old F who presents for Bariatric Assessment. Patient presents today for LAP-BAND follow-up. She's requesting a fill of her band. She is currently hungry. Past Medical History Past Medical History: Hypertension, Neurologic Disorder Additional Past Medical History / Comment(s): HX PVCs,spastic paraplegia bilateral legs-freq falls,chronic pain mid buttock down jadiel legs, Left broken clavicle x2,lt knee fx, rt broken patella 09/13/16; History of Any Multi-Drug Resistant Organisms: None Reported Past Surgical History: Appendectomy, Bariatric Surgery, Breast Surgery, Hysterectomy, Orthopedic Surgery Additional Past Surgical History / Comment(s): benign mass removed left upper thigh 03-20, left clavicle repaired surgically on 06/25/16,3 lumps removed lt breast, lap band Past Anesthesia/Blood Transfusion Reactions: No Reported Reaction Additional Past Anesthesia/Blood Transfusion Reaction / Comm: no hx blood transfusion Past Psychological History: Depression Smoking Status: Never smoker Past Alcohol Use History: None Reported Additional Past Alcohol Use History / Comment(s): quit smoking 1997,smoked approx 20yrs <1ppd Past Drug Use History: None Reported - Past Family History Mother Family Medical History: No Reported History Father Family Medical History: Cancer, Diabetes Mellitus Additional Family Medical History / Comment(s): skin,MS Surgical - Exam Vital Signs Temp Pulse BP 98.1 F 79 102/56 08/26/22 13:29 08/26/22 13:29 08/26/22 13:29 - General well developed, well nourished, no distress - Eyes PERRL - ENT normal pinna, normal nares - Neck no masses - Respiratory normal expansion - Cardiovascular Rhythm: regular - Abdomen Abdomen: soft, non tender Bariatric Assessment & Plan Plan: Patient LAP-BAND was adjusted. She had 0.3 mL added to the band. She is "without difficulty. She'll follow-up in 4 weeks. Bariatric Checklist Checklist: Plan: Checklist: EGD: 1. Hiatal hernia: 2. H. Pylori: HgbA1c: Vitamin D: Smoking: Former smoker Primary care physician referral: alecia auguste ([place]) Psychiatry clearance: Cardiology clearance: Sleep study: Diet journal: VTE risk score: VTE risk level: Rehab needs at discharge:
== END ==
LOC: BARWHC3 13:06
PROVIDERS: ATTEND Surgery
DX: E66.01 Morbid (severe) obesity due to excess calories (principal); I10 Essential (primary) hypertension; Z87.891 Personal history of nicotine dependence; Z46.51 Encounter for fitting and adjustment of gastric lap band; Z88.1 Allergy status to other antibiotic agents; Z79.899 Other long term (current) drug therapy; Z68.24 Body mass index [BMI] 24.0-24.9, adult
CPT/HCPCS: 99212

== ENCOUNTER → 2023-02-10 | Outpatient (CLI) | payer MEDICARE ==
[2023-02-10 10:18] VITALS: BP 126/68; PULSE 67; TEMP 98.1; BMI 25.5
--- NOTE | 2023-02-10 18:12 | P.HPBAR ---
Bariatric H&P - History & Physicial H&P Date: 02/10/23 History & Physicial: Visit/CC: lap band Patient initial contact: Initial weight: 95.254 kg Initial weight in pounds: 210.00 Height: 5 ft 8 in Initial BMI: 31.9 Last weight: Current weight: 76.204 kg Current weight in pounds: 168.00 Current BMI: 25.5 [place] body weight (based on NIH guidelines): 63.503 kg Excess body weight loss: 59.9% The patient is a 67 year-old F who presents for Bariatric Assessment. Patient presents today for [place] fall. She has complaints of hunger. She requesting a fill. She feels that her fill volume has decreased significantly. She is suspicious for broken port. Past Medical History Past Medical History: Hypertension, Neurologic Disorder Additional Past Medical History / Comment(s): HX PVCs,spastic paraplegia bilateral legs-freq falls,chronic pain mid buttock down jadiel legs, Left broken clavicle x2,lt knee fx, rt broken patella 09/13/16; History of Any Multi-Drug Resistant Organisms: None Reported Past Surgical History: Appendectomy, Bariatric Surgery, Breast Surgery, Hysterectomy, Orthopedic Surgery Additional Past Surgical History / Comment(s): benign mass removed left upper thigh -, left clavicle repaired surgically on 06/25/16,3 lumps removed lt breast, lap band Past Anesthesia/Blood Transfusion Reactions: No Reported Reaction Additional Past Anesthesia/Blood Transfusion Reaction / Comm: no hx blood transfusion Past Psychological History: Depression Smoking Status: Never smoker Past Alcohol Use History: None Reported Additional Past Alcohol Use History / Comment(s): quit smoking 1997,smoked approx 20yrs <1ppd Past Drug Use History: None Reported - Past Family History Mother Family Medical History: No Reported History Father Family Medical History: Cancer, Diabetes Mellitus Additional Family Medical History / Comment(s): skin,MS Surgical - Exam Vital Signs Temp Pulse BP 98.1 F 67 126/68 02/10/23 10:11 02/10/23 10:11 02/10/23 10:11 - General well developed, well nourished, no distress - Eyes PERRL - ENT normal pinna - Neck no masses - Respiratory normal expansion - Cardiovascular Rhythm: regular - Abdomen Abdomen: soft, non tender Bariatric Assessment & Plan Plan: Patient LAP-BAND was adjusted. 1 mL was added to the band. Patient was missing approximately 1.2 mL from her band. Patient most likely has a broken LAP-BAND port. Patient was given the option to replace LAP-BAND port were convert sleeve gastrectomy. Patient will follow-up in one month for recheck. Bariatric Checklist Checklist: Plan: Checklist: EGD: 1. Hiatal hernia: 2. H. Pylori: HgbA1c: Vitamin D: Smoking: Former smoker Primary care physician [place]: alecia [place] Psychiatry clearance: Cardiology clearance: Sleep study: Diet journal: VTE risk score: VTE risk level: Rehab needs at discharge:
== END ==
LOC: BARWHC3 09:58
PROVIDERS: ATTEND Surgery
DX: E66.01 Morbid (severe) obesity due to excess calories (principal); I10 Essential (primary) hypertension; G89.29 Other chronic pain; Z46.51 Encounter for fitting and adjustment of gastric lap band; Z98.84 Bariatric surgery status; Z68.25 Body mass index [BMI] 25.0-25.9, adult; Z88.1 Allergy status to other antibiotic agents; Z79.899 Other long term (current) drug therapy; Z87.891 Personal history of nicotine dependence
CPT/HCPCS: 99211